=== PATIENT | male | born 1930 | race Caucasian/White ===

== ENCOUNTER → 2016-05-15 | Day surgery (SDC) | payer OTHER, MEDICARE ==
[~2016-05-15] MED LIST: BSS OPTH.SOL* BTL ONE; Buffered Lidocaine 1% SYR 3ML* 3 ML/SYR SYRINGE INTRADERM ONE; Buffered Lidocaine 1% SYR 3ML* 3 ML/SYR SYRINGE ONE; Bupivacaine 0.25% EPI 200,000* 30 ML SDV ONE; HYDROcodone/ACETAMIN 5-325 MG* 1 TAB PO PRN; Lidocain 1% EPI 1:100,000 * 30 ML MDV ONE; Methylene Blue 1%* 10 ML VIAL ONE; Midazolam* 1 MG/ML 5 ML VIAL (5 MG) ONE; Mineral Oil Sterile, TOPICAL* 25 ML BTL ONE; Ondansetron INJ* 2 MG/ML VIAL IV PRN; Propofol* 10 MG/ML 20 ML BTL IV PUSH ONE; ceFAZolin 2 GM PREMIX (*) 2 GM/50 ML BAG IVPB ONE; fentaNYL* 50 MCG/ML 2 ML VIAL (100 MCG VIAL) IV PRN; fentaNYL* 50 MCG/ML 2 ML VIAL (100 MCG VIAL) ONE
[2016-05-15 14:37] VITALS: BP 129/76
== END | disposition home or self-care (01) ==
LOC: OREAST 11:12
PROVIDERS: ATTEND Plastic Surgery
DX: C44.311 Basal cell carcinoma of skin of nose (principal); I48.91 Unspecified atrial fibrillation; I10 Essential (primary) hypertension; E03.9 Hypothyroidism, unspecified; Z79.01 Long term (current) use of anticoagulants; E11.8 Type 2 diabetes mellitus with unspecified complications; Z79.4 Long term (current) use of insulin
CPT/HCPCS: A9270-GY; J0690; J2250; J2704; J3010

== ENCOUNTER → 2016-06-12 | Day surgery (SDC) | payer OTHER, MEDICARE ==
[~2016-06-12] MED LIST changes: +Bacitracin OINTMENT* 0.5% 0.5 oz TUBE ONE; -HYDROcodone/ACETAMIN 5-325 MG* 1 TAB PO PRN; +KETAMINE HCL* 50 MG/ML 10 ML VIAL ONE; +Metoprolol Tartrate IV* 1 MG/ML 5 ML VIAL ONE; -Ondansetron INJ* 2 MG/ML VIAL IV PRN; +Phenylephrine IV* 40 MCG/ML 10 ML SYRINGE ONE; -fentaNYL* 50 MCG/ML 2 ML VIAL (100 MCG VIAL) IV PRN; -fentaNYL* 50 MCG/ML 2 ML VIAL (100 MCG VIAL) ONE
[2016-06-12 11:02] VITALS: BP 132/94
== END | disposition home or self-care (01) ==
LOC: OREAST 06:25
PROVIDERS: ATTEND Plastic Surgery
DX: C44.311 Basal cell carcinoma of skin of nose (principal); E11.8 Type 2 diabetes mellitus with unspecified complications; Z79.4 Long term (current) use of insulin; Z95.1 Presence of aortocoronary bypass graft; I10 Essential (primary) hypertension; I48.91 Unspecified atrial fibrillation; Z79.01 Long term (current) use of anticoagulants; Z87.891 Personal history of nicotine dependence
CPT/HCPCS: A9270-GY; J0690; J2250; J2704; J3490

== ENCOUNTER 2017-02-24 06:11 | Day surgery (SDC) | payer MEDICARE ==
[~2017-02-24 06:11] MED LIST changes: -BSS OPTH.SOL* BTL ONE; -Bacitracin OINTMENT* 0.5% 0.5 oz TUBE ONE; +Buffered Lidocaine 0.9% SYRIN* 5 ML/SYR SYRINGE INTRADERM ONE; -Buffered Lidocaine 1% SYR 3ML* 3 ML/SYR SYRINGE INTRADERM ONE; -Buffered Lidocaine 1% SYR 3ML* 3 ML/SYR SYRINGE ONE; -Bupivacaine 0.25% EPI 200,000* 30 ML SDV ONE; +Dexamethasone IV* 4 MG/ML 1 ML (4 MG) IV SLOW PU ONE; +Famotidine IV* 10 MG/ML 2 ML (20 mg) IV ONE; -KETAMINE HCL* 50 MG/ML 10 ML VIAL ONE; -Lidocain 1% EPI 1:100,000 * 30 ML MDV ONE; -Methylene Blue 1%* 10 ML VIAL ONE; -Metoprolol Tartrate IV* 1 MG/ML 5 ML VIAL ONE; -Midazolam* 1 MG/ML 5 ML VIAL (5 MG) ONE; -Mineral Oil Sterile, TOPICAL* 25 ML BTL ONE; -Phenylephrine IV* 40 MCG/ML 10 ML SYRINGE ONE; -Propofol* 10 MG/ML 20 ML BTL IV PUSH ONE; -ceFAZolin 2 GM PREMIX (*) 2 GM/50 ML BAG IVPB ONE
[2017-02-24] MEDS ORDERED: ceFAZolin 2 GM PREMIX (*) 2 GM/50 ML BAG IVPB ONE (06:16)
[2017-02-24] MEDS ORDERED: Dexamethasone IV* 4 MG/ML 1 ML (4 MG) ONE (06:16)
[2017-02-24] MEDS ORDERED: Famotidine IV* 10 MG/ML 2 ML (20 mg) ONE (06:16)
[2017-02-24] MEDS ORDERED: Buffered Lidocaine 0.9% SYRIN* 5 ML/SYR SYRINGE ONE (06:19)
[2017-02-24] MEDS ORDERED: Midazolam* 1 MG/ML 5 ML VIAL (5 MG) ONE (07:21)
[2017-02-24] MEDS ORDERED: fentaNYL* 50 MCG/ML 2 ML VIAL (100 MCG VIAL) ONE (07:21)
[2017-02-24] MEDS ORDERED: Ondansetron INJ* 2 MG/ML VIAL ONE (07:22)
[2017-02-24] MEDS ORDERED: Propofol* 10 MG/ML 20 ML BTL IV PUSH ONE (07:22)
[2017-02-24] MEDS ORDERED: Methylene Blue 0.5 %* 50 MG/10 ML AMP IV ONE (07:23)
[2017-02-24] MEDS ORDERED: Bupivacaine 0.25% SDV* 30 ML ONE (07:23)
[2017-02-24] MEDS ORDERED: Mineral Oil Sterile, TOPICAL* 25 ML BTL ONE (07:24)
[2017-02-24] MEDS ORDERED: Lidocaine 1% MPF wEPI 200,000* 30 ML SDV ONE (07:24)
[2017-02-24] MEDS ORDERED: Bupivacaine 0.5% SDV PF* 30 ML VIAL ONE (07:24)
[2017-02-24] MEDS ORDERED: Lidocaine 1.5% EPI 1:200,000* 30 ML SDV ONE (07:39)
[2017-02-24] MEDS ORDERED: BSS OPTH.SOL* BTL ONE (08:11)
[2017-02-24 11:09] VITALS: BP 131/80
== END 2017-02-24 11:11 | disposition home or self-care (01) ==
LOC: OR 06:11
PROVIDERS: ATTEND Plastic Surgery
DX: C44.311 Basal cell carcinoma of skin of nose (principal); E11.9 Type 2 diabetes mellitus without complications; Z79.4 Long term (current) use of insulin; Z95.5 Presence of coronary angioplasty implant and graft; Z95.2 Presence of prosthetic heart valve; I10 Essential (primary) hypertension; I48.91 Unspecified atrial fibrillation; Z79.01 Long term (current) use of anticoagulants; E03.9 Hypothyroidism, unspecified
CPT/HCPCS: 88305; 88331; 88332; A9270-GY; J0690; J1100; J2001; J2250; J2405; J2704; J3010